=== PATIENT | male | born 1980 | race Caucasian/White ===

== ENCOUNTER 2021-02-22 11:31 | Emergency (ER) | payer BC, OTHER ==
[2021-02-22 11:38] VITALS: RESP 18
[2021-02-22] MEDS ORDERED: LIDOCAINE 1% INJ 10MG/ML (20 ML MDV) SQ ONE (12:07)
[2021-02-22] MEDS ORDERED: DIPH,PERTUS(ACELL)TETVAC-LF 0.5 ML VIAL IM ONE (12:07)
--- NOTE | 2021-02-22 13:08 | ED ---
Wound/Laceration HPI - General Chief Complaint: Wound/Laceration Stated Complaint: Finger laceration, [facility] Time Seen by Provider: 02/22/21 11:47 Source: patient, RN notes reviewed Mode of arrival: ambulatory Limitations: no limitations - History of Present Illness Initial Comments: Patient is a 40-year-old male that presents to emergency department complaining of a left thumb laceration that he sustained while at work. He notes he was try to cut some dry eyes when he caught himself in the back of the left thumb at the proximal knuckle. He denied any other issues or complaints. He is unsure of his tetanus vaccine status. He was otherwise a well-appearing 40-year-old male no apparent distress or pain. She denied chest pain shortness of breath headache nausea vomiting diarrhea constipation fever fatigue chills. - Related Data Home Medications Medication Instructions Recorded Confirmed Naproxen Sodium [Aleve] 220 mg PO BID 08/13/15 08/13/15 Previous Rx's Medication Instructions Recorded Ibuprofen [Motrin] 800 mg PO Q8HR PRN #30 tab 08/13/15 Penicillin V Potassium [Pen Vee K] 500 mg PO QID #40 tab 08/13/15 traMADol HCl [Ultram] 50 mg PO Q6H PRN #20 tab 08/13/15 Allergies Allergy/AdvReac Type Severity Reaction Status Date / Time No Known Allergies Allergy Verified 02/22/21 11:35 Review of Systems ROS Statement: Those systems with pertinent positive or pertinent negative responses have been documented in the HPI. ROS Other: All systems not noted in ROS Statement are negative. Past Medical History Past Medical History: No Reported History History of Any Multi-Drug Resistant Organisms: None Reported Past Surgical History: Cholecystectomy Past Psychological History: No Psychological Hx Reported Smoking Status: Former smoker Past Alcohol Use History: None Reported Past Drug Use History: None Reported General Exam Limitations: no limitations General appearance: alert, in no apparent distress Head exam: Present: atraumatic, normocephalic, normal inspection Eye exam: Present: normal appearance, PERRL, EOMI. Absent: scleral icterus, conjunctival injection, periorbital swelling ENT exam: Present: normal exam, mucous membranes moist Neck exam: Present: normal inspection Respiratory exam: Present: normal lung sounds bilaterally. Absent: respiratory distress, wheezes, rales, rhonchi, stridor Cardiovascular Exam: Present: regular rate, normal rhythm, normal heart sounds. Absent: systolic murmur, diastolic murmur, rubs, gallop, clicks Extremities exam: Present: normal inspection, full ROM, normal capillary refill. Absent: tenderness, pedal edema, joint swelling, calf tenderness Neurological exam: Present: alert, oriented X3 Psychiatric exam: Present: normal affect, normal mood Skin exam: Present: warm, dry, intact, normal color. Absent: rash Expanded Type of lesion: Present: laceration (Dorsal aspect of the left thumb proximal knuckle going lateral to medial measuring approximately 3 cm) Course Vital Signs 02/22/21 11:35 Temperature 99.2 F Pulse Rate 120 H Respiratory 18 Rate Blood Pressure 139/102 O2 Sat by Pulse 100 Oximetry Procedures - Laceration Laceration #1 Consent Obtained: verbal consent Indication: laceration Site: hand (Dorsal aspect left thumb) Size (cm): 3 Description: linear Depth: simple, single layer Anesthetic Used: lidocaine 1% Anesthesia Technique: local infiltration Amount (mls): 2 Pre-repair: irrigated extensively Type of Sutures: nylon Size of Sutures: 4-0 Number of Sutures: 3 Technique: simple, interrupted Patient Tolerated Procedure: well, no complications Medical Decision Making - Medical Decision Making 40-year-old male that has a thumb laceration. Lidocaine, tetanus ordered. Patient tolerated suturing well. Case discussed with Dr. Scott, patient discharge home with follow-up primary care. Disposition Clinical Impression: Laceration Disposition: HOME SELF-CARE Condition: Stable Instructions (If sedation given, give patient instructions): Laceration (ED), Care For Your Stitches (ED) Additional Instructions: Please return to the Emergency Department if symptoms worsen or any other concerns. Follow-up with primary care 1-2 days. Please return in 7-10 days to have sutures removed. Keep area clean and dry. Is patient prescribed a controlled substance at d/c from ED?: No Referrals: None,Stated [Primary Care Provider] - 1-2 days Time of Disposition: 13:08
[2021-02-22 13:21] VITALS: BP 151/117; PULSE 109; TEMP 98.3
== END 2021-02-22 13:17 | disposition home or self-care (01) ==
LOC: EC 11:31
DX: S61.012A Laceration without foreign body of left thumb without damage to nail, initial encounter (principal); Z90.49 Acquired absence of other specified parts of digestive tract; Z87.891 Personal history of nicotine dependence; W26.8XXA Contact with other sharp object(s), not elsewhere classified, initial encounter
CPT/HCPCS: 99282; 90471; 12002; 90715; J2001